=== PATIENT | male | born 1980 | race Caucasian/White ===

== ENCOUNTER 2025-06-20 18:28 | Emergency (ER) | payer OTHER ==
[~2025-06-20] VITALS: Ht 182.9 cm; Wt 149.7 kg
[~2025-06-20 18:28] MED LIST: Flomax0.4 MG PO; NAPR500 PO; Phentermine HCl15 MG PO; Roxicodone5 MG PO; Zofran Odt4 MG PO
[2025-06-20] MEDS ORDERED: HYDROmorphone HCl/Pf 1MG SYR IV ONE (19:10)
[2025-06-20 19:24] LABS: BASOPHILS ABSOLUTE AUTO 0.06 K/mm3 (0.00-0.23); BASOPHILS PERCENT AUTO 0 % (0-2); EOSINOPHILS ABSOLUTE AUTO 0.12 K/mm3 (0.00-0.68); EOSINOPHILS PERCENT AUTO 1 % (0-6); Hematocrit 44.7 % (37.0-53.0); Hemoglobin 15.0 g/dL (13.5-17.5); IMMATURE GRAN ABSOLUTE AUTO 0.05 K/mm3 (0.00-0.10); IMMATURE GRAN PERCENT AUTO 0 % (0-1); LYMPHOCYTES ABSOLUTE AUTO 3.03 K/mm3 (0.84-5.20); LYMPHOCYTES PERCENT AUTO 22 % (21-46); MONOCYTES ABSOLUTE AUTO 0.89 K/mm3 (0.16-1.47); MONOCYTES PERCENT AUTO 7 % (4-13); Mean Corpuscular HGB Conc 33.6 g/dL (31.5-36.5); Mean Corpuscular Volume 83 fL (80-100); NEUTROPHILS ABSOLUTE AUTO 9.45 K/mm3 (1.96-9.15); NEUTROPHILS PERCENT AUTO 70 % (41-73); NRBC ABSOLUTE 0.00 K/mm3 (0.00-0.02); NRBC Auto 0.0 /100 WBC (0.0-0.2); Platelet Count 246 K/mm3 (150-400); RDW Coefficient Variation 13.6 % (11.7-14.2); RDW Standard Deviation 41.0 fL (35.1-46.3)
[2025-06-20 19:34] LABS: Prothrombin Time Results 11.4 Sec (9.7-11.5)
[2025-06-20 19:51] LABS: Alanine Aminotransfer (ALT/SGP 43.0 U/L (12-78); Albumin, Blood 4.0 g/dL (3.4-5.0); Albumin/Globulin Ratio 1.0 (0.8-1.8); Anion Gap 9.0 mmol/L (3-11); Aspartate Aminotrans (AST/SGOT 23.0 U/L (12-37); Bilirubin, Total 1.0 mg/dL (0.1-1.0); Blood Urea Nitrogen 19.0 mg/dL (8-24); CO2, Blood 27.0 mmol/L (21-32); Calcium, Blood 9.3 mg/dL (8.5-10.1); Chloride, Blood 107.0 mmol/L (98-108); Creatinine, Blood 0.97 mg/dL (0.60-1.20); Globulin, Blood 4.0 g/dL (2.2-4.0); Glucose, Blood 105.0 mg/dL (70-99); Magnesium, Blood 2.4 mg/dL (1.6-2.4); Potassium, Blood 3.9 mmol/L (3.5-5.5); Sodium, Blood 139.0 mmol/L (136-145); Total Protein, Blood 8.0 g/dL (6.4-8.2)
[2025-06-20] MEDS ORDERED: Robaxin750 MG PO (21:36)
[2025-06-20 22:00] VITALS: BP 168/89
== END 2025-06-20 21:59 | disposition home or self-care (01) ==
LOC: ER 18:28
PROVIDERS: Student in an Organized Health Care Education/Training Program
DX: G89.11 Acute pain due to trauma (principal); M25.511 Pain in right shoulder; E78.00 Pure hypercholesterolemia, unspecified; Z79.899 Other long term (current) drug therapy
CPT/HCPCS: 70450; 71260; 72125; 74177; 80053; 83735; 84484; 85025; 85610; 85730; 86850; 86900; 86901; 90715; 93005; 93010; 96374-59; 99284-25; J1171; J7120; Q9967